=== PATIENT | female | born 1995 ===

== ENCOUNTER 2020-02-10 13:49 | Emergency (ER) | payer OTHER ==
[~2020-02-10] VITALS: Ht 154.9 cm; Wt 45.4 kg
[2020-02-10] MEDS ORDERED: ALLEGRA ALLERG180 MG PO (15:35)
== END 2020-02-10 15:50 | disposition home or self-care (01) ==
LOC: ER 13:49
DX: T78.1XXA Other adverse food reactions, not elsewhere classified, initial encounter (principal); R21 Rash and other nonspecific skin eruption

== ENCOUNTER 2025-02-23 10:36 | Outpatient (CLI) | payer OTHER ==
[~2025-02-23 10:36] MED LIST: ALLEGRA ALLERG180 MG PO
== END 2025-02-23 10:41 | disposition home or self-care (01) ==
LOC: MAMO-SONO 10:36
PROVIDERS: ATTEND Obstetrics & Gynecology
DX: N60.11 Diffuse cystic mastopathy of right breast (principal); N60.12 Diffuse cystic mastopathy of left breast; N64.4 Mastodynia